=== PATIENT | female | born 1965 | race Caucasian/White ===

== ENCOUNTER → 2021-11-16 | Day surgery (SDC) | payer MEDICARE, OTHER ==
[~2021-11-16] MED LIST: ASPIR 8181 MG PO; ATORVASTATIN CA80 MG PO; BENADRYL25 MG PO; CO Q-10100 MG PO; COZAAR100 MG PO; CYCLOBENZAPRINE10 MG PO; FISH OIL 1,0001 EACH PO; FOLIC ACID 1 MG1 MG PO; HYDROCHLOROTHIA25 MG PO; HYDROXYZINE HCL25 MG PO; IMDUR ER TAB 3030 MG PO; LATUDA40 MG PO; NEURONTIN 100100 MG PO; NITROSTAT0.4 MG SL; NORCO 5-325 TA1 EACH PO; PROCARDIA XL30 MG PO; REMERON30 M1 PO; REPATHA SY140 MG/1 M SQ; TRAZODONE HCL50 MG PO; VISTARIL25 MG PO; VITAMIN D250000 UNIT PO; XIIDRA 5% OU; ZETIA10 MG PO; ZOLOFT100 MG PO
== END | disposition home or self-care (01) ==
LOC: OR 06:23
DX: D12.3 Benign neoplasm of transverse colon (principal); D12.2 Benign neoplasm of ascending colon; K62.1 Rectal polyp; E78.00 Pure hypercholesterolemia, unspecified; R19.5 Other fecal abnormalities; I11.0 Hypertensive heart disease with heart failure; I50.9 Heart failure, unspecified; Z88.2 Allergy status to sulfonamides; Z88.8 Allergy status to other drugs, medicaments and biological substances; Z87.891 Personal history of nicotine dependence; Z79.82 Long term (current) use of aspirin; Z98.51 Tubal ligation status; E66.9 Obesity, unspecified; K29.50 Unspecified chronic gastritis without bleeding; Z68.29 Body mass index [BMI] 29.0-29.9, adult; Z20.822 Contact with and (suspected) exposure to COVID-19; Z95.1 Presence of aortocoronary bypass graft
CPT/HCPCS: J2704; J7040

== ENCOUNTER → 2021-12-08 | Outpatient (CLI) | payer MEDICARE, OTHER | LOC: LAB 09:19 | DX: I25.10 Atherosclerotic heart disease of native coronary artery without angina pectoris (principal); I10 Essential (primary) hypertension | CPT/HCPCS: 36415; 80061 ==

== ENCOUNTER → 2022-03-10 | Outpatient (CLI) | payer MEDICARE, OTHER | LOC: RAD 12:52 | DX: M25.571 Pain in right ankle and joints of right foot (principal); M25.471 Effusion, right ankle | CPT/HCPCS: 73610 ==

== ENCOUNTER → 2022-06-08 | Outpatient (CLI) | payer MEDICARE, OTHER | LOC: LAB 08:30 | DX: I25.10 Atherosclerotic heart disease of native coronary artery without angina pectoris (principal); E78.5 Hyperlipidemia, unspecified | CPT/HCPCS: 36415; 80061 ==